=== PATIENT | female | born 1930 | race Caucasian/White ===

== ENCOUNTER 2017-03-01 11:40 | Emergency (ER) | payer MEDICARE ==
[~2017-03-01 11:40] MED LIST: DAILY MULTIPLE1 EAC1 PO
[2017-03-01 13:48] LABS: HEMOGLOBIN 11.6 gm/dl (12.3-15.3); WHITE BLOOD COUNT 8.2 K/UL (4.5-11.0)
[2017-03-01 14:06] LABS: BUN/CREATININE RATIO 25 (0-10)
[2017-03-02] MEDS ORDERED: LEVOXYL100 MCG PO (19:54)
[2017-03-02] MEDS ORDERED: TOPROL XL50 MG PO (19:54)
[2017-03-02] MEDS ORDERED: ASPIRIN CHEWABL81 MG PO (19:55)
[2017-07-05] MEDS ORDERED: ZOLOFT100 MG PO (21:46)
[2017-07-05] MEDS ORDERED: METHADONE HCL TA5 MG PO (21:48)
[2017-07-05] MEDS ORDERED: DIAZEPAM2 MG PO (21:49)
[2017-07-05] MEDS ORDERED: NORTRIPTYLINE H10 MG PO (21:52)
[2017-07-05] MEDS ORDERED: LIORESAL TAB 1010 MG PO (21:52)
[2017-07-05] MEDS ORDERED: CELEBREX200 MG PO (21:56)
[2017-07-05] MEDS ORDERED: ULTRAM50 MG PO (21:56)
== END 2017-03-01 16:05 | disposition left against medical advice (07) ==
LOC: ER1 11:40
PROVIDERS: Emergency Medicine
DX: R07.9 Chest pain, unspecified (principal); N39.0 Urinary tract infection, site not specified
CPT/HCPCS: 36415; 71010; 80053; 81001; 82550; 82553; 83874; 83880; 84484; 85025; 85610; 85730; 87086; 93005; 99285

== ENCOUNTER 2017-03-02 08:55 | Inpatient (IN) | payer MEDICARE ==
[~2017-03-02] VITALS: Ht 152.4 cm; Wt 59.0 kg
[2017-03-02 09:27] LABS: RED BLOOD COUNT 4.43 M/UL (4.00-5.10)
[2017-03-02] MEDS ORDERED: LEVOXYL100 MCG PO (19:54)
[2017-03-02] MEDS ORDERED: TOPROL XL50 MG PO (19:54)
[2017-03-02] MEDS ORDERED: ASPIRIN CHEWABL81 MG PO (19:55)
[2017-03-03 04:57] LABS: HEMOGLOBIN 11.1 gm/dl (12.3-15.3); WHITE BLOOD COUNT 8.3 K/UL (4.5-11.0)
[2017-03-03 04:59] LABS: RED BLOOD COUNT 3.86 M/UL (4.00-5.10)
[2017-03-04 05:15] LABS: HEMOGLOBIN 10.3 gm/dl (12.3-15.3); RED BLOOD COUNT 3.57 M/UL (4.00-5.10)
[2017-03-04 05:19] LABS: WHITE BLOOD COUNT 5.5 K/UL (4.5-11.0)
[2017-03-05 04:51] LABS: HEMOGLOBIN 10.2 gm/dl (12.3-15.3); RED BLOOD COUNT 3.57 M/UL (4.00-5.10); WHITE BLOOD COUNT 6.4 K/UL (4.5-11.0)
[2017-03-05 05:15] LABS: BUN/CREATININE RATIO 23 (0-10)
[2017-03-05] MEDS ORDERED: CIPRO500 MG PO (11:00)
[2017-03-05] MEDS ORDERED: TYLENOL 325MG325 MG PO (11:01)
[2017-03-05] MEDS ORDERED: PROTONIX40 MG PO (11:02)
[2017-03-05] MEDS ORDERED: NEURONTIN 100100 MG PO (11:02)
[2017-07-05] MEDS ORDERED: ZOLOFT100 MG PO (21:46)
[2017-07-05] MEDS ORDERED: METHADONE HCL TA5 MG PO (21:48)
[2017-07-05] MEDS ORDERED: DIAZEPAM2 MG PO (21:49)
[2017-07-05] MEDS ORDERED: LIORESAL TAB 1010 MG PO (21:52)
[2017-07-05] MEDS ORDERED: NORTRIPTYLINE H10 MG PO (21:52)
[2017-07-05] MEDS ORDERED: ULTRAM50 MG PO (21:56)
[2017-07-05] MEDS ORDERED: CELEBREX200 MG PO (21:56)
== END 2017-03-05 12:30 | disposition home or self-care (01) | DRG 392 ==
LOC: ER1 08:55 → MED SURG 4 14:22 → ZEROF 14:22 → MED SURG 4 19:50
PROVIDERS: Emergency Medicine; Internal Medicine; Internal Medicine Gastroenterology; ADMIT Emergency Medicine
PROC: 0DB68ZX Excision of Stomach, Via Natural or Artificial Opening Endoscopic, Diagnostic (ICD-10-PCS; principal; 2017-03-04 12:15)
DX: K22.4 Dyskinesia of esophagus (principal); N30.00 Acute cystitis without hematuria; I10 Essential (primary) hypertension; K44.9 Diaphragmatic hernia without obstruction or gangrene; M19.90 Unspecified osteoarthritis, unspecified site; F41.9 Anxiety disorder, unspecified; F32.9 Major depressive disorder, single episode, unspecified; K80.20 Calculus of gallbladder without cholecystitis without obstruction; E03.9 Hypothyroidism, unspecified; E86.0 Dehydration; M25.511 Pain in right shoulder; R51 Headache; K25.7 Chronic gastric ulcer without hemorrhage or perforation; Z96.659 Presence of unspecified artificial knee joint; Z91.041 Radiographic dye allergy status; Z88.0 Allergy status to penicillin; Z91.048 Other nonmedicinal substance allergy status; Z82.49 Family history of ischemic heart disease and other diseases of the circulatory system
CPT/HCPCS: 36415; 71010; 80048; 80053; 80061; 81001; 82150; 82550; 82552; 82553; 83690; 83874; 83880; 84484; 85025; 85027; 85610; 85730; 87086; 93005; 96374; 96375; 99285; C9113; J1885; J1956; J2250; J2270; J2405; J2550; J3010; J7040

== ENCOUNTER 2017-03-08 20:19 | Emergency (ER) | payer MEDICARE ==
[~2017-03-08 20:19] MED LIST changes: +ASPIRIN CHEWABL81 MG PO; +CIPRO500 MG PO; +LEVOXYL100 MCG PO; +NEURONTIN 100100 MG PO; +PROTONIX40 MG PO; +TOPROL XL50 MG PO; +TYLENOL 325MG325 MG PO
[2017-03-08 21:20] LABS: RED BLOOD COUNT 4.27 M/UL (4.00-5.10); WHITE BLOOD COUNT 12.3 K/UL (4.5-11.0)
[2017-03-08 21:21] LABS: HEMOGLOBIN 12.5 gm/dl (12.3-15.3)
[2017-03-08 21:36] LABS: BUN/CREATININE RATIO 34 (0-10)
[2017-07-05] MEDS ORDERED: ZOLOFT100 MG PO (21:46)
[2017-07-05] MEDS ORDERED: METHADONE HCL TA5 MG PO (21:48)
[2017-07-05] MEDS ORDERED: DIAZEPAM2 MG PO (21:49)
[2017-07-05] MEDS ORDERED: NORTRIPTYLINE H10 MG PO (21:52)
[2017-07-05] MEDS ORDERED: LIORESAL TAB 1010 MG PO (21:52)
[2017-07-05] MEDS ORDERED: ULTRAM50 MG PO (21:56)
[2017-07-05] MEDS ORDERED: CELEBREX200 MG PO (21:56)
== END 2017-03-08 23:45 | disposition short-term general hospital (02) ==
LOC: ER1 20:19
PROVIDERS: Emergency Medicine
DX: R07.9 Chest pain, unspecified (principal); R56.9 Unspecified convulsions; I10 Essential (primary) hypertension; Z88.0 Allergy status to penicillin; Z88.6 Allergy status to analgesic agent; Z91.040 Latex allergy status; Z91.041 Radiographic dye allergy status
CPT/HCPCS: 36415; 70450; 71010; 80053; 83690; 83880; 84484; 85025; 85610; 85730; 93005; 96374; 96375; 99285; J2270; J2405